=== PATIENT | male | born 1980 | race Caucasian/White ===

== ENCOUNTER 2016-07-01 00:14 | Emergency (ER) | payer OTHER ==
[2016-07-01 00:18] VITALS: RESP 16; TEMP 98.1
[2016-07-01] MEDS ORDERED: TDAP ADULT 0.5 ML INJ (BOOSTRIX) IM ONE (00:43)
--- NOTE | 2016-07-01 00:45 | EDPHY ---
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 Does not recall when his last tetanus was. Denies other injuries at this time. ROS: 10 point Review of Systems is negative except as noted in the HPI. PMH: None Medications: None Allergies: Penicillin Social History: [No] smoking, [no] alcohol, [ no recreational drug use] Family History: [non-contributory] Physical Exam: General: Awake, alert, no acute distress Right hand: He has got a 2 cm laceration over the palmar aspect of his proximal 1st phalanx. He has full flexion extension of the thumb. He sensations intact distally. Cap refills less than 2 seconds. No other injuries noted. Skin: No rash - Personal History Current Tetanus/Diphtheria Vaccine: Unsure Current Tetanus Diphtheria and Acellular Pertussis (TDAP): Unsure - Medical/Surgical History Hx Asthma: No Hx Chronic Respiratory Disease: No Hx Diabetes: No Hx Cardiac Disease: No Hx Renal Disease: No Hx Cirrhosis: No Hx Alcoholism: No Hx HIV/AIDS: No Hx Splenectomy or Spleen Trauma: No Other PMH: denies - Social History Smoking Status: Never smoked Constitutional: Initial Vital Signs Temperature (C) 36.7 C 07/01/16 00:15 Heart Rate 62 07/01/16 00:15 Respiratory Rate 16 07/01/16 00:15 Blood Pressure 137/87 H 07/01/16 00:15 O2 Sat (%) 97 07/01/16 00:15 O2 Delivery Mode Room Air Allergies/Adverse Reactions: Penicillins Allergy (Verified 07/01/16 00:19) Hives Home Medications: Medication Instructions Recorded NK [No Known Home Meds] 07/01/16 Medical Decision Making Procedures: Procedure: Digital nerve block, indication is digit anesthesia for procedure. Patient was prepped with chlorhexidine Skin prep. 0.5% bupivacaine was infiltrated in the medial in lateral aspects for with a dorsal approach at the base of the proximal phalanx with blockage of both dorsal and volar nerves. Total of 2 mL was infiltrated. There were no complications. Procedure was performed by myself. Procedure: Laceration repair. Verbal consent was obtained from the patient. The 2 cm laceration on the right thumb was anesthetized in the usual fashion. The wound was irrigated, draped and explored to its base with a gloved finger. There were no deep structures involved. No tendon injury was identified. The wound was repaired with 7/5-0 simple interrupted Ethilon sutures. The wound repair was uncomplicated. The procedure was performed by myself. - Data Points Medications Given: Discontinued Medications Diphtheria/Tetanus/Acell Pertussis (Boostrix) 0.5 ml IM .ONCE ONE Stop: 07/01/16 00:44 Last Admin: 07/01/16 01:02 Dose: 0.5 ml Departure - Departure Disposition: Home, Routine, Self-Care Clinical Impression: Laceration Condition: Good Instructions: Laceration (ED), Care For Your Stitches (ED), Diphtheria/ Acellular Pertussis/Tetanus Booster Vaccine (By injection) Additional Instructions: Sutures need to be removed in 14 days. Keep the area clean and dry. Return emergency depart for increasing redness, swelling, pus from the wound, streaking up your arm, or any other concerns. Follow up with primary care physician in 14 days for suture removal. Referrals: KAVITHA HANNON [Primary Care Provider] - As per Instructions
[2016-07-01 01:39] VITALS: BP 132/76; PULSE 68; O2SAT 95
== END 2016-07-01 01:38 | disposition home or self-care (01) ==
PROC: 0HQGXZZ Repair Left Hand Skin, External Approach (ICD-10-PCS; principal; 2016-07-01)
DX: S61.011A Laceration without foreign body of right thumb without damage to nail, initial encounter (principal); Z23 Encounter for immunization; W45.8XXA Other foreign body or object entering through skin, initial encounter